=== PATIENT | female | born 1975 | race Caucasian/White ===

== ENCOUNTER → 2023-07-14 19:16 | Outpatient (REF) | payer BC, SELFPAY | LOC: WDC 19:16 | PROVIDERS: ATTENDING PHYSICIAN Family Medicine | DX: Z12.31 Encounter for screening mammogram for malignant neoplasm of breast (principal) | CPT/HCPCS: 77063; 77067 ==

== ENCOUNTER → 2024-03-02 06:26 | Day surgery (SDC) | payer BC, SELFPAY | LOC: GI 06:26 | PROVIDERS: ATTENDING PHYSICIAN Internal Medicine Gastroenterology | DX: Z12.11 Encounter for screening for malignant neoplasm of colon (principal); K64.8 Other hemorrhoids; K63.5 Polyp of colon; Q43.8 Other specified congenital malformations of intestine | CPT/HCPCS: 45380; 88305 ==

== ENCOUNTER → 2024-06-27 16:45 | Outpatient (REF) | payer BC, SELFPAY | LOC: RCS 16:45 | PROVIDERS: ATTENDING PHYSICIAN Emergency Medicine | DX: R60.0 Localized edema (principal) | CPT/HCPCS: 93306 ==